=== PATIENT | male | born 1995 | race Asian ===

== ENCOUNTER 2019-04-24 11:26 | Outpatient (CLI) | payer BC ==
[~2019-04-24 11:26] MED LIST: AMOX-426 PO; PARO-41 PO; SACC250C3 PO
[2019-04-24 12:09] LABS: BASOPHILS % (AUTO) 0.5 % (0.0-2.0); EOSINOPHILS # (AUTO) 0.3 K/uL (0.0-0.4); HEMATOCRIT 48.6 % (36-54); HEMOGLOBIN 16.4 g/dL (14.0-18.0); LYMPHOCYTES # (AUTO) 1.2 K/uL (1.0-5.5); LYMPHOCYTES % (AUTO) 21.3 % (20.5-51.5); MEAN CORPUSCULAR HEMOGLOBIN 30 pg (27-31); MEAN CORPUSCULAR HGB CONC 34 % (32-36); MEAN CORPUSCULAR VOLUME 88 fL (79.0-98.0); MONOCYTES # (AUTO) 0.5 K/uL (0.0-1.0); MONOCYTES % (AUTO) 8.7 % (1.7-9.3); NEUTROPHILS # (AUTO) 3.7 K/uL (1.8-7.7); NEUTROPHILS % (AUTO) 63.5 % (40.0-70.0); PLATELET COUNT (AUTO) 170 K/uL (130-430); RED BLOOD CELL COUNT(AUTO) 5.51 MIL/uL (4.2-6.2); RED CELL DISTRIBUTION WIDTH 12.7 % (9.0-15.0); WHITE BLOOD COUNT (AUTO) 5.8 K/uL (4.8-10.8)
[2019-04-24 12:37] LABS: CALCIUM 9.4 mg/dL (8.4-11.0); POTASSIUM 4.9 mmol/L (3.5-5.1)
[2019-04-24 12:38] LABS: ALBUMIN 4.4 g/dL (3.4-4.8); CREATININE 1.17 mg/dL (0.55-1.30); TOTAL BILIRUBIN 0.7 mg/dL (0.0-1.0); URIC ACID 5.6 mg/dL (2.4-7.0)
[2019-04-24 12:39] LABS: FREE T4 (FREE THYROXINE) 1.1 ng/dl (0.8-1.5); THYROID STIMULATING HORMONE 2.76 uIu/mL (0.36-3.74)
[2019-04-25 08:09] LABS: HEMOGLOBIN A1C 5.2 % (4.8-5.6)
== END 2019-04-24 21:03 | disposition home or self-care (01) ==
LOC: SLB 11:26
PROVIDERS: ATTEND Internal Medicine
DX: Z00.00 Encounter for general adult medical examination without abnormal findings (principal); I07.1 Rheumatic tricuspid insufficiency; R00.0 Tachycardia, unspecified
CPT/HCPCS: 36415; 80053; 80061; 82306; 82607; 83036; 84439; 84443-TC; 84550-TC; 85025; 93005; 93306

== ENCOUNTER 2019-12-13 15:57 | Outpatient (CLI) | payer BC | END 2019-12-13 20:31 | disposition home or self-care (01) | LOC: SLB 15:57 | PROVIDERS: ATTEND Internal Medicine | DX: M47.816 Spondylosis without myelopathy or radiculopathy, lumbar region (principal) | CPT/HCPCS: 72110 ==

== ENCOUNTER 2020-03-22 12:09 | Outpatient (CLI) | payer BC | END 2020-03-22 20:54 | disposition home or self-care (01) | LOC: SRD 12:09 | PROVIDERS: ATTEND Internal Medicine | DX: M41.05 Infantile idiopathic scoliosis, thoracolumbar region (principal) | CPT/HCPCS: 72082 ==

== ENCOUNTER 2021-03-29 16:23 | Emergency (ER) | payer BC, SELFPAY ==
[~2021-03-29] VITALS: Ht 175.3 cm; Wt 81.6 kg
--- NOTE | 2021-03-29 16:31 | NUR ---
Placed in room 07 .
[2021-03-29 16:32] VITALS: BP_SYST 120
--- NOTE | 2021-03-29 16:32 | NUR ---
Dr Emanuel placed orders for patient
--- NOTE | 2021-03-29 16:36 | NUR ---
Pt awake, alert and oriented x 3. Reporting severe R testicular pain since last night. PMH appendectomy only. Awaiting UA and further MD dispo.
[2021-03-29] MEDS ORDERED: KETOROLAC TROMETHAMINE 60 MG/2 ML VIAL IM ONE (16:45)
--- NOTE | 2021-03-29 16:50 | NUR ---
Ultrasound being done at bedside
--- NOTE | 2021-03-29 17:50 | NUR ---
Dr Emanuel to bedside to assess patient
[2021-03-29 18:08] LABS: BILIRUBIN,URINE NEGATIVE (NEGATIVE); BLOOD, URINE NEGATIVE (NEGATIVE); CLARITY/URINE CLEAR (CLEAR); COLOR,URINE YELLOW (YELLOW); GLUCOSE,URINE NEGATIVE (NEGATIVE); KETONES,URINE NEGATIVE (NEGATIVE); LEUKOCYTE ESTERASE ,URINE NEGATIVE (NEGATIVE); NITRITE, URINE NEGATIVE (NEGATIVE); PH,URINE 5.5 (5.0-8.0); PROTEIN URINE NEGATIVE (NEGATIVE); UROBILINOGEN,URINE 0.2 (0.2-1.0)
[2021-03-29] MEDS ORDERED: HYDR-3917 PO ×2 (18:19→18:50)
[2021-03-29] MEDS ORDERED: IBUP-1971 PO ×2 (18:19→18:50)
--- NOTE | 2021-03-29 18:25 | NUR ---
Patient given written and verbal discharge instructions and verbalizes understanding. ER MD discussed with patient the results and treatment provided. Patient in stable condition. ID arm band removed. Rx of [place] and Ibuprofen given. Patient educated on pain management and to follow up with PMD. Pain improved. Opportunity for questions provided and answered. Medication side effect fact sheet provided.
[2021-03-29 18:27] VITALS: BP_SYST 120
== END 2021-03-29 18:27 | disposition home or self-care (01) ==
LOC: SED 16:23
DX: I86.1 Scrotal varices (principal); N50.811 Right testicular pain; Z79.899 Other long term (current) drug therapy
CPT/HCPCS: 76870; 81003; 96372; 99284; J1885